=== PATIENT | male | born 1990 | race Caucasian/White ===

== ENCOUNTER 2017-01-01 15:31 | Emergency (ER) | payer MEDICAID ==
[2017-01-01 15:40] VITALS: RESP 16; O2SAT 98
--- NOTE | 2017-01-01 16:42 | EDPHY ---
H & P Stated Complaint: Urinary urgency and burning Source: Patient Exam Limitations: No limitations - Personal History Current Tetanus/Diphtheria Vaccine: Unsure Current Tetanus Diphtheria and Acellular Pertussis (TDAP): Unsure - Medical/Surgical History Hx Asthma: No Hx Chronic Respiratory Disease: No Hx Diabetes: No Hx Cardiac Disease: No Hx Renal Disease: No Hx Cirrhosis: No Hx Alcoholism: No Hx HIV/AIDS: No Hx Splenectomy or Spleen Trauma: No Other PMH: Denies - Social History Smoking Status: Never smoked Time Seen by Provider: 01/01/17 15:48 HPI/ROS: CHIEF COMPLAINT: urinary symptoms HISTORY OF PRESENT ILLNESS: 26-year-old male presents to the emergency department reporting urinary frequency, urgency, dysuria and a discomfort in his bladder. Patient reports 3 weeks ago he was seen at his primary care doctor for left sided abdominal pain and flank pain thought to be a kidney stone. He had leukocytes in his urine at this time and was placed on a 7 day course Bactrim. Patient finished this Bactrim 2 weeks ago. His symptoms had resolved until 3 days ago when he started with urinary frequency and urgency. He also had an episode of hematuria. Yesterday this patient started with dysuria and feeling like there is something in his bladder. Patient denies fevers or chills, no nausea or vomiting. He denies penile discharge. Patient denies history of STDs, reports he was sexually active 2 months ago. Has not been tested for STDs. Patient reports he called his primary care doctor and reported the symptoms with the hematuria and a recommended he come to the emergency for a CT scan. REVIEW OF SYSTEMS: A comprehensive 10 point review of systems is otherwise negative aside from elements mentioned in the history of present illness. (Nesha Salinas) - Physical Exam Exam: Physical Exam Gen: Alert and Oriented, NAD HEENT: PERRL, moist mucous membranes NECK: no meningismus CV: regular rate and regular rhythm PULM: CTAB, no wheezes ABDOMEN: soft, non tender to palpation, BS present BACK: No CVA tenderness NEURO: Neurologically grossly intact EXTREMITIES: normal appearing SKIN: no rash or break in skin on exposed skin PSYCH: answers questions appropriately. (Nesha Salinas) Constitutional: Initial Vital Signs Temperature (C) 36.7 C 01/01/17 15:37 Heart Rate 78 01/01/17 15:37 Respiratory Rate 16 01/01/17 15:37 Blood Pressure 131/37 H 01/01/17 15:37 O2 Sat (%) 98 01/01/17 15:37 O2 Delivery Mode Room Air Allergies/Adverse Reactions: No Known Allergies Allergy (Unverified 01/01/17 15:37) Home Medications: Medication Instructions Recorded Phenazopyridine HCl [Pyridium] 200 mg PO TID #10 tab 01/01/17 Tamsulosin HCl 0.4 mg PO DAILY #7 cap 01/01/17 Medical Decision Making - Diagnostics Imaging: Discussed imaging studies w/ call center consultant Radiologist - Diagnostics Imaging Results: CT abdomen pelvis- Impression: 1. 6-mm stone in the distal left ureter with moderate obstructive uropathy. 2. Diffuse bladder wall thickening suspicious for cystitis. 3. 3-mm nonobstructing right renal stone. 4. Additional findings, as above. (Nesha Salinas) ED Course/Re-evaluation: The patient was evaluated and managed by the physician's teachers' assistant. My cosignature indicates that I reviewed the chart and I agree with the findings and plan of care as documented. I am the secondary supervising physician. ( Rolanda Fried) Urinalysis shows 50-182 RBCs, no WBCs. CT abdomen pelvis obtained showing a 6 mm stone in the left ureter with moderate hydro. Patient will be discharged home with a prescription for tamsulosin. He will take 600 mg of ibuprofen every 8 hours with food for 3-5 days. Patient agrees to follow up with Urology. He will return for any worsening symptoms, fevers, vomiting, new symptoms or concerns. (Nesha Salinas) Differential Diagnosis: Diagnosis considered but not limited to pyelonephritis, urinary tract infection , kidney stone (Nesha Salinas) - Data Points Medications Given: Discontinued Medications Phenazopyridine HCl (Pyridium) 200 mg PO EDNOW ONE Stop: 01/01/17 17:52 Last Admin: 01/01/17 17:59 Dose: 200 mg Tamsulosin HCl (Flomax) 0.4 mg PO EDNOW ONE Stop: 01/01/17 17:51 Last Admin: 01/01/17 17:59 Dose: 0.4 mg Departure - Departure Disposition: Home, Routine, Self-Care Clinical Impression: Left ureteral stone Condition: Good Instructions: Kidney Stones (ED) Additional Instructions: Take 0.4 mg of tamsulosin daily for 7 days. Take given Pyridium every 8 hours as needed for bladder spasms. Take 600 mg of ibuprofen every 8 hours with food for 5 days as needed for pain. Call the urologist Tuesday morning to schedule appointment to be seen at 1st available appointment. Return to the emergency department immediately for any fevers, vomiting, inability to urinate , any new symptoms or concerns. Referrals: Juan Daugherty MD [Medical Doctor] - As per Instructions (Urologist on-call) Prescriptions: Phenazopyridine HCl [Pyridium] 200 mg PO TID #10 tab Tamsulosin HCl 0.4 mg PO DAILY #7 cap
[2017-01-01 16:48] LABS: COLOR YELLOW; LEUKOCYTE ESTERASE,URINE NEGATIVE (NEGATIVE); NITRITE,URINE NEGATIVE (NEGATIVE)
[2017-01-01 16:50] LABS: MUCUS TRACE /lpf (NONE-1+); RBC,URINE 50-182 /hpf (0-3)
[2017-01-01] MEDS ORDERED: TAMSULOSIN HCL 0.4 MG CAP PO ONE (17:50)
[2017-01-01] MEDS ORDERED: PHENAZOPYRIDINE HCL 200 MG TAB PO ONE (17:51)
[2017-01-01 18:15] VITALS: BP 135/80; PULSE 75; TEMP 98.8
[2017-01-04 13:34] LABS: CHLAMYDIA AMPLIFICATION GENPRB NEGATIVE (NEGATIVE)
== END 2017-01-01 18:14 | disposition home or self-care (01) ==
DX: N20.1 Calculus of ureter (principal)

== ENCOUNTER → 2017-03-15 | Outpatient (CLI) | payer MEDICAID | LOC: BMCIMAGING 14:56 | PROVIDERS: ATTEND Urology | DX: N20.1 Calculus of ureter (principal) ==